=== PATIENT | male | born 1925 | race Caucasian/White ===

== ENCOUNTER → 2017-01-07 | Outpatient (CLI) | payer OTHER ==
[~2017-01-07] VITALS: Ht 175.3 cm; Wt 70.8 kg
[~2017-01-07] MED LIST: ASPIR 8181 MG PO; CENTRUM SILVER1 EAC4 PO; CITRACAL + D M1 EACH PO; CO Q-10100 MG PO; COREG3.125 MG PO; CRESTOR40 MG PO; FOSAMAX 70 MG T70 MG PO; FUROSEMIDE 20 M20 M1 PO; HYTRIN 2MG CAPSU2 MG PO; KLOR-CON 10 ER10 MEQ PO; LIMBREL 500 MG500 MG PO; NITROGLYCERIN0.4 MG SUBLING; OMEPRAZOLE40 MG PO; PHILLIPS' COLO1 EACH PO; PLAVIX 75 MG TA75 M1 PO; PRESERVISION T1 EACH PO; REQUIP 0.25 M0.25 MG PO; SELENIMIN200 MCG PO; SERTRALINE HCL50 MG PO; SYNTHROID50 MCG PO; VITAMIN D-32000 UNIT PO; VITAMINC500 PO; ZANTAC 150MG T150 MG PO
--- NOTE | ~2017-01-07 | HPC ---
[facility] [address] [place] [address] PAIN MANAGEMENT CONSULTATION Name: LETY SANCHEZ Room #: REG [facility] Gayle#: [id number] Admission: 01/07/17 Attend Phys: Gerry Moore DO Discharge: Date of : 10/[birth year] Report #: [id number] THIS REPORT FOR: //name// CC: ERI Moore HISTORY OF PRESENT ILLNESS: The patient is an 89-year-old gentleman seen in consultation at the request of Dr. Naylor for evaluation of pain, primarily bilateral hips and low back. The patient states the pain has been present for at least 2 years. He has had multiple falls, he had fallen in November 2015, suffering a left femur fracture, sounds like he had an intermedullary rivas placed surgically with some improvement of pain. Graduated from walking with a walker to a cane. He fell again this past November. He did suffer a right color bone fracture. This was treated conservatively with a sling. It did make ambulating with a walker difficult. He notes primary pain in the back and hips along with axial back pain is problematic, rates anywhere from 7-10 on a VAS. He notes pain is intermittent and sharp; tends to be exacerbated with weightbearing, standing and walking. The patient denies specific myelopathic symptoms. No bowel or bladder continence changes or loss of proprioception. He is generally little bit weaker in the lower extremities. REVIEW OF SYSTEMS: Complete review of systems attached to chart and gone over with the patient. He is , seen in the company of a who is supportive. He does not use tobacco products or drink alcohol to excess. History of coronary artery disease status post endovascular stents in July 2015 (reported [place] in May 2015). Currently on carvedilol and Plavix. History of hypothyroidism for which he takes levothyroxine, gastroesophageal reflux for which he takes omeprazole. Some chronic anxiety for which he takes sertraline. Limbrel for chronic DJD. Terazosin for benign prostatic hypertrophy, Crestor for dyslipidemia. History of osteoarthritis, he using alendronate. He was treated for bladder cancer in 1991 and the aforementioned hip fracture in 2015. 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 He states he still works 1 day a week. He works for a [employer]. Pain impact score is 32/70. PHYSICAL EXAMINATION: GENERAL: Reveals a 5 feet 9 inches, 156 pounds gentleman in moderate distress, pleasant gentleman with a BMI of 23 kilograms per meter squared. VITAL SIGNS: Blood pressure is 137/70, pulse 80, respirations are 14. He is a little hard of hearing. He is otherwise alert and oriented to person, place and time. NEUROLOGIC: Cranial nerves 2-12 are grossly intact. HEENT: Pupils are equal and react to light and accommodation. [facility] [address] [address] PAIN MANAGEMENT CONSULTATION Name: LETY SANCHEZ Room #: REG JACOB Araujo#: [id number] Admission: 01/07/17 Attend Phys: Gerry Moore DO Discharge: Date of : 10/[birth year] Report #: [id number] muscles are intact. There is no nystagmus or lateral gaze deviation. NECK: Cervical range of motion is modestly limited; extension exacerbates low back pain. Thyroid has a small nodule in the left side. EXTREMITIES: Upper extremity strength is diminished, but symmetric. HEART: Regular and rhythmical without murmur. LUNGS: Clear to auscultation. ABDOMEN: Benign. MUSCULOSKELETAL: Rises from chair using armrest. Has a markedly antalgic gait. Tender over the low thoracic and low lumbar midline. Some diffuse tenderness over the SI joints bilaterally. Lower extremity strength is generally symmetric at 4/5. Straight leg raise is negative. Patellar and Achilles reflexes are preserved. He is wearing a neoprene sleeve over the left knee, which he states helps with some chronic knee pain. MERI test is grossly positive bilaterally, left greater than right. DIAGNOSTIC STUDIES: Include MRI of the lumbar spine from 01/04/2017. Study does show loss of vertebral height at L5 with bone marrow edema ____ superior endplate, greatest right of midline. There is also marked central compression of the T10 vertebral body with bone marrow edema noted centrally as well. Along with this, there is also slight anterolisthesis at L4-L5 with moderate lateral stenosis, marked right neural foraminal stenosis approaching the L4 nerve root, marked left neural foraminal stenosis as well. This has progressed slightly from prior study (10/21/2015). L5-S1 notes marked facet arthropathy as well. ASSESSMENT: 1. Vertebral compression fracture times 2, T10 and L5. 2. Sacroiliac joint mediated pain by clinical exam. 3. Possible component of lumbar radiculopathy, though symptoms appear little more quiescent. RECOMMENDATIONS: The patient may benefit from bilateral SI joint injections under fluoroscopy. We will seek authorization for same. We will have the patient hold Plavix. We can do the SI joint injections under fluoroscopy on Tuesday while anticoagulating, may benefit from T10 and L5 vertebroplasty, will need to be off Plavix for 7 days. We will defer to Dr. Maurizio Moore regarding this therapeutic intervention. Thank you for allowing me to participate in the patient's care. Again, followup appointment with Dr. Maurizio Moore on Tuesday for SI joint injections, we will keep you abreast of his progress. By: [id number] Gerry Moore, DO /nt
[2017-01-07 12:51] VITALS: BP 137/78
== END | disposition home or self-care (01) ==
LOC: PAIN 07:32
DX: M53.3 Sacrococcygeal disorders, not elsewhere classified (principal); I25.10 Atherosclerotic heart disease of native coronary artery without angina pectoris; I51.9 Heart disease, unspecified; E03.9 Hypothyroidism, unspecified; E78.5 Hyperlipidemia, unspecified; K21.9 Gastro-esophageal reflux disease without esophagitis; N40.0 Benign prostatic hyperplasia without lower urinary tract symptoms; M19.90 Unspecified osteoarthritis, unspecified site; F41.8 Other specified anxiety disorders; Z85.51 Personal history of malignant neoplasm of bladder; Z87.442 Personal history of urinary calculi; Z87.310 Personal history of (healed) osteoporosis fracture; Z98.49 Cataract extraction status, unspecified eye; Z98.890 Other specified postprocedural states; Z79.899 Other long term (current) drug therapy; Z79.82 Long term (current) use of aspirin; Z88.1 Allergy status to other antibiotic agents

== ENCOUNTER → 2017-01-20 | Outpatient (CLI) | payer OTHER ==
[~2017-01-20] VITALS: Ht 172.7 cm; Wt 70.3 kg
--- NOTE | ~2017-01-20 | HPC ---
[facility] [address] [address] PAIN MANAGEMENT CONSULTATION Name: LETY SANCHEZ [id number] Admission: 01/20/17 Attend Phys: Gerry Moore DO Discharge: Date of : 10/[birth year] Report #: [id number] THIS REPORT FOR: //name// CC: You Moore The patient is a very pleasant 89-year-old gentleman, seen 01/07/2017 for diagnosis of symptomatic bilateral SI mediated pain. We sought authorization for bilateral SI joint injection under fluoroscopy. Returns to pain clinic today for this procedure. The patient stopped his Plavix, though he was not told to do so. Notes the pain is a 7 on a VAS. It continues across the low back, into the buttocks. RECOMMENDATION: 1. SI joint injection under fluoroscopy as authorized. 2. Follow up in 2 weeks for reevaluation. Consider physical therapy at that time SI without steroid if needed for diagnostic studies and/or epidural injection if radicular component seems to be present. ASSESSMENT: Symptomatic sacroiliac joint dysfunction by clinical exam and history. PROCEDURE: Bilateral SI joint injection under fluoroscopy. PROCEDURE NOTE: After written and informed consent was obtained including risk of infection, nerve trauma, increased pain and weakness, the patient wishes to proceed. The patient was taken to the fluoroscopy suite, placed in the prone position. The sacroiliac joint was visualized using the C-arm, turned in an oblique fashion to align the joint. The skin overlying the area was cleansed with ChloraPrep. Skin wheal with Xylocaine was raised. A 22 gauge spinal needle was inserted into the inferior aspect of the joint. A low volume extension tubing was then attached to the needle after the stylet was removed. Negative aspiration was accomplished. A 1 mL of Omnipaque was injected which showed spread within the SI joint. 40 mg triamcinolone plus 2 mL of 0.5% preservative-free bupivacaine was injected into the joint. Needle was removed. Attention was then turned to the contralateral joint which was treated in an identical fashion. After both needles were removed the prep was washed off. Two Band-Aids were applied over the puncture sites. The patient was allowed to ambulate to the recovery room, monitored for an appropriate period of time, discharged in good and stable condition. Fluoroscopy time was under 10 seconds. <ELECTRONICALLY SIGNED> By: Gerry Moore DO 01/21/17 [id number] Gerry Moore DO /nt
[2017-01-20 13:43] VITALS: BP 140/72
== END | disposition home or self-care (01) ==
LOC: PAIN 01-11 07:08
DX: M53.3 Sacrococcygeal disorders, not elsewhere classified (principal)
CPT/HCPCS: G0260